=== PATIENT | female | born 1985 | race Caucasian/White ===

== ENCOUNTER 2017-04-16 09:05 | Inpatient (IN) | payer OTHER ==
[2017-04-16] VITALS (34 sets, daily range): BP systolic 101–147; BP diastolic 54–79
[~2017-04-16] VITALS: Ht 167.6 cm; Wt 116.0 kg
--- NOTE | 2017-04-16 09:02 | NUR ---
PT ARRIVED IN TRIAGE, BREATHING WELL WITH EACH CONTRACTION, STATED CONTRACTIONS STARTED AT 0700 AND POSSIBLE SROM AT 0745. HEIGHT AND WEIGHT OBTAINED, PT PROVIDED URINE FOR TESTING. ASSISTED TO BED, EFM STARTED VIA [employer]. CONTRACTIONS PALPATE MILD TO MODERATE. ASSESSMENT DONE.
[~2017-04-16 09:05] MED LIST: AMOXICILLIN/CL875 MG OR; AMOXICILLIN/PO500 MG PO; AMOXICILLIN875 MG OR; ATROVENT NASAL0.03 % NAS; AUGMENTIN875TAB OR; BENADRYL 50MG C50 MG PO; CELEXA20 M1 PO; CEPHALEXIN500 M1 OR; CEPHALEXIN500 M1 PO; CHERATUSSIN OR; CIPRO750 MG PO; CIPROFLOXACN500 MG PO; CLARITIN10 MG OR; DEPO-MEDROL80 MG/ML IM; DIFLUCAN150 MG OR; DIFLUCAN150 MG PO; DOXYCYCL HYC100 MG PO; EQ IBUPROFEN200 MG PO; FIORICE1 PO; FIORICET PO; FLEXERIL10 MG PO; FLEXERIL5 M1 PO; FLONASE 60 DOS0.05 %; FOLIC ACID1 MG PO; IBUPROFEN800 MG PO; KEFLEX500 MG OR; KETOROLAC60 MG/2 ML IJ; KURIC2 % EX; LORTAB 7.5 PO; MEDDOSEPAK PO; METRONIDAZOL500 MG PO; NAPROSYN500 MG PO; NAPROXEN500 MG PO; NO; NO HOME MEDS; PAROXETINE20 MG PO; PRE NATAL VIT; PRENATAL1 TA1 PO; PRENATAL1 TAB OR; PREVACID30 M3 PO; PROAIR HFA IN; PROCARDIA10 MG PO; ROBITUSSIN AC10 ML PO; ROCEPHIN 1 GM1 GM IM; SOLU-MEDROL125 MG; SOLU-MEDROL125 MG IM; TAM75CAP OR; TORADOL PO; TRAMADOL HCL50 MG PO; ULTRAM50 MG PO; ZITHROMAX250 MG OR; ZOFRAN ODT4 MG PO
[2017-04-16 09:17] LABS: URINE BILIRUBIN - DIPSTICK NEGATIVE (NEGATIVE); URINE BLOOD DIPSTICK LARGE (NEGATIVE); URINE CLARITY SLIGHT CLOUDY; URINE COLOR YELLOW; URINE GLUCOSE - DIPSTICK NEGATIVE (NEGATIVE); URINE KETONE NEGATIVE (NEGATIVE); URINE NITRITE - DIPSTICK NEGATIVE (Negative); URINE PROTEIN - DIPSTICK NEGATIVE (NEG-TRACE); URINE UROBILINOGEN - DIPSTICK 0.2 E.U./dL (0.2)
[2017-04-16 09:18] LABS: URINE LEUK ESTERASE SMALL (NEGATIVE)
[2017-04-16 09:21] LABS: BARBITURATES NEGATIVE (NEGATIVE); COCAINE NEGATIVE (NEGATIVE); METHADONE NEGATIVE (NEGATIVE); OXCYCODONE NEGATIVE (NEGATIVE); TETRAHYDROCANNABIONOL NEGATIVE (NEGATIVE); TRICYLIC ANTIDEPRESSANTS NEGATIVE (NEGATIVE)
[2017-04-16 09:23] LABS: URINE SQUAMOUS EPITHELIAL CELL MODERATE EPI/hpf (0-FEW)
--- NOTE | 2017-04-16 09:25 | NUR ---
SVE DONE PT IS BREATHING WELL WITH EACH CONTRACTION AND C/O FEELING PRESSURE. 5-6/90%/-1, VERTEX. WILL CALL
--- NOTE | 2017-04-16 09:30 | NUR ---
REPORT GIVEN TO DR. VIRAMONTES ABOUT PT, ORDERS RECEIVED.
--- NOTE | 2017-04-16 09:40 | NUR ---
18G IV STARTED ON PT'S LEFT AC, X 2 ATTEMPTS BY SANDER DORMAN AND Amaris GAO RN. LABS DRAWN. IVF STARTED BOLUS ORDERED. PT TOLERATED PROCEDURE WELL.
--- NOTE | 2017-04-16 10:00 | NUR ---
DR. VIRAMONTES AT BEDSIDE, SVE DONE, 5/90%/0.
--- NOTE | 2017-04-16 10:05 | NUR ---
PT AND SHARING THAT THEIR LAST CHILD HAS EPIDERMOLYSIS BULLOSA (EB), AND THAT THERE IS A 25% THAT THIS CHILD WILL HAVE IT ALSO. PARENTS REQUESTING TO BE CAREFUL WITH INFANT'S SKIN SKIN WILL SLOUGH OFF IF THERE IS PRESSURE OR RUBBING OF SKIN. NURSERY NURSE AND TEACHER PRIVATE MADE AWARE.
--- NOTE | 2017-04-16 10:09 | NUR ---
NUBAIN GIVEN DURING CONTRACTION AT THIS TIME FOR A PAIN OF 8 OUT OF 10.
[2017-04-16 10:32] LABS: HEMATOCRIT 40.3 % (37.0-47.0); HEMOGLOBIN 13.2 g/dl (12.0-16.0); IMMATURE GRANULOCYTES 0.6 % (0.0-1.0); MEAN CELL VOLUME 83.4 fL CALC (80.0-100.0); MEAN CORPUSCULAR HGB 27.3 pG CALC (26.0-32.0); MEAN CORPUSCULAR HGB CONC 32.8 g/L CALC (32.0-36.0); NEUT# 6.32 thou/uL (2.00-7.15); RED BLOOD COUNT 4.83 mill/uL (4.20-5.60)
[2017-04-16] MEDS ORDERED: ZANTAC150 M1 PO (10:37)
[2017-04-16] MEDS ORDERED: TYLENOL325 MG PO (10:38)
[2017-04-16 10:39] LABS: ALBUMIN 3.6 g/dL (3.2-5.0); ALKALINE PHOSPHATASE 134 u/l (38-126); ANION GAP 14 (6-22 (CALC)); BILIRUBIN, TOTAL 0.3 mg/dL (0.0-1.4); BUN 10 mg/dL (7-17); BUN/CREATININE RATIO 15 (12-20 (CALC)); CALCIUM 8.9 mg/dL (8.4-10.2); CARBON DIOXIDE 22 mmol/l (22-30); CHLORIDE 107 mmol/l (95-108); CREATININE 0.6 mg/dL (0.5-1.0); GFR > 60 ML/MIN (>=60 (CALC)); GFR FOR AFR.AMER. > 60 ML/MIN (>=60 (CALC)); GLUCOSE 75 mg/dL (65-105); POTASSIUM 4.1 mmol/l (3.5-5.1); SGOT/AST 18 u/l (14-36); SGPT/ALT 27 u/l (9-52); SODIUM 138 mmol/l (137-146); TOTAL PROTEIN 6.4 g/dL (6.3-8.2)
--- NOTE | 2017-04-16 10:40 | NUR ---
PT RESTING, STATES NUBAIN HELPED THE PAIN, PAIN IS DOWN TO 4 OUT OF 10.
--- NOTE | 2017-04-16 10:53 | NUR ---
PT SLEEPING AT THIS TIME, AT BEDSIDE.
--- NOTE | 2017-04-16 11:50 | NUR ---
DR. VIRAMONTES AT BEDSIDE, SVE DONE, 6/90%/0 PER MD.
--- NOTE | 2017-04-16 12:02 | NUR ---
PT UP TO BATHROOM, VOIDED 200ML DARK YELLOW URINE. PT ALSO HAD EMESIS OF CLEAR SECRETIONS. NOW SITTING AT EDGE OF BED.
--- NOTE | 2017-04-16 12:13 | NUR ---
NUBAIN GIVEN DURING CONTRACTION.
--- NOTE | 2017-04-16 12:57 | NUR ---
NOVII LINDA MONITOR CHANGED TO DIFFERENT MACHINE CONTRACTIONS ARE BEING PALPATED, BUT NOT SHOWING UP ON MONITOR.
--- NOTE | 2017-04-16 13:11 | NUR ---
NOVII LINDA MONITOR APPEARS TO BE PICKING UP CONTRACTIONS NOW.
--- NOTE | 2017-04-16 13:19 | NUR ---
PT HAD LIGHT GREEN EMESIS AT THIS TIME.
--- NOTE | 2017-04-16 13:21 | NUR ---
PT REQUESTING EPIDURAL, IV BOLUS STARTED. DR. VIRAMONTES NOTIFIED AND ON HIS WAY TO THE HOSPITAL. Bola MELENDEZ CRNA NOTIFIED WELL.
--- NOTE | 2017-04-16 13:28 | NUR ---
EXTERNAL MATERNAL DIRECTOR PRODUCT DEVELOPMENT AND PULSE OX, ALONG WITH BP, PLACED ON PT TO MONITOR VS/EKG DURING PROCEDURE.
--- NOTE | 2017-04-16 13:40 | NUR ---
Bola MELENDEZ, ASSET MANAGER AT BEDSIDE.
--- NOTE | 2017-04-16 13:55 | NUR ---
DR. VIRAMONTES AT BEDSIDE, SVE DONE, 7/90%/0.
--- NOTE | 2017-04-16 13:56 | NUR ---
Bola MELENDEZ, AUTOMATIC MAINTAINER IN ROOM AT THIS TIME.
--- NOTE | 2017-04-16 14:00 | NUR ---
PT SITTING UP AT EDGE OF BED FOR EPIDURAL PLACEMENT.
--- NOTE | 2017-04-16 14:02 | NUR ---
SKIN PREP PER CIVIL ENGINEER LAND DEVELOPMENT.
--- NOTE | 2017-04-16 14:05 | NUR ---
SKIN NUMBING PER BUSINESS INSTRUCTOR.
--- NOTE | 2017-04-16 14:09 | NUR ---
CATH IN PLACE.
--- NOTE | 2017-04-16 14:10 | NUR ---
TEST DOSE PER DIVING INSTRUCTOR, HR 58-60'S.
--- NOTE | 2017-04-16 14:12 | NUR ---
BOLUS DOSE PER DRAG OUT WORKER.
--- NOTE | 2017-04-16 14:14 | NUR ---
PT LAID DOWN AT THIS TIME, WITH RIGHT TILT.
--- NOTE | 2017-04-16 14:35 | NUR ---
PT RESTING, DENIES ANY PAIN, VISITING WITH FAMILY.
--- NOTE | 2017-04-16 14:50 | NUR ---
ATTEMPTED TO PLACE CABAN CATHETER, BUT UNABLE TO ADVANCE IN THE [place]. WILL NOTIFY
--- NOTE | 2017-04-16 14:55 | NUR ---
PT SLEEPING AT THIS TIME.
--- NOTE | 2017-04-16 15:18 | NUR ---
PT HAD ANOTHER EMESIS AT THIS TIME.
--- NOTE | 2017-04-16 15:20 | NUR ---
CABAN INSERTED USING STERILE TECHNIQUE.
--- NOTE | 2017-04-16 15:25 | NUR ---
DR. VIRAMONTES AT BEDSIDE, SVE DONE, RIM/100%/+1.
--- NOTE | 2017-04-16 15:40 | NUR ---
PT REPOSITIONED TO HIGH FOWLERS AFTER HAVING VARIABLE DECEL. WILL CONTINUE TO MONITOR.
--- NOTE | 2017-04-16 16:04 | NUR ---
DR. VIRAMONTES AT BEDSIDE, SVE DONE, COMPLETE, PREPPING FOR DELIVERY.
--- NOTE | 2017-04-16 16:10 | NUR ---
CABAN REMOVED AT THIS TIME.
--- NOTE | 2017-04-16 16:21 | NUR ---
O2 AT 15L PER NON REBREATHER MASK APPLIED TO PT FOR VARIABLE DECELS.
--- NOTE | 2017-04-16 16:25 | NUR ---
OF FEMALE INFANT. SEE DELIVERY ROOM RECORD. PITOCIN 20 UNITS IN LR STARTED A BOLUS PER MD'S ORDER.
--- NOTE | 2017-04-16 16:27 | NUR ---
PLACENTA OUT AT THIS TIME, FF@U, LIGHT LOCHIA.
--- NOTE | 2017-04-16 16:40 | NUR ---
Bola MELENDEZ, JOSELINE NOTIFIED THAT PT DELIVERED.
--- NOTE | 2017-04-16 17:00 | NUR ---
EPIDURAL REMOVED PER BOAT MOTOR MECHANIC, TIP INTACT.
--- NOTE | 2017-04-16 17:40 | NUR ---
PT ASSISTED TO BATHROOM, VOIDED SMALL AMOUNT, PERICARE DONE, PANTIES AND PADS PLACED, GOWN CHANGED. THEN ASSISTED PT TO WHEELCHAIR AND MOVED TO ROOM 203. ORIENTED TO NEW ROOM, INITIAL POST TEACHING DONE. BOTH PT AND HER VERBALIZED UNDERSTANDING.
--- NOTE | 2017-04-16 17:55 | NUR ---
MEDICATED WITH MOTRIN FOR CRAMPING PAIN.
--- NOTE | 2017-04-16 18:00 | NUR ---
DR. VIRAMONTES NOTIFIED THAT PT IS NAUSEATED AND REQUESTING SOMETHING FOR IT. ORDERS RECEIVED.
--- NOTE | 2017-04-16 18:09 | NUR ---
PT MEDICATED WITH ZOFRAN IV FOR NAUSEA AT THIS TIME.
--- NOTE | 2017-04-16 18:45 | NUR ---
REPORT FROM Yudi MAYEN RN
--- NOTE | 2017-04-16 19:10 | NUR ---
PT VISITING WITH FAMILY, IN OPEN CRIB AT BS. POC REVIEWED, UNDERSTANDING VERBLIZED
--- NOTE | 2017-04-16 22:00 | NUR ---
UP TO SHOWER. AMBULATING WITHOUT DIZZINESS OR LIGHTHEADEDNESS. IV SITE COVERED. ADVISED OF EMERGENCY CALL LIGHT IF NEEDED. VERBALIZED UNDERSTANDING. FAMILY AT BEDSIDE.
--- NOTE | 2017-04-16 22:18 | NUR ---
PT UP TO SHOWER
[2017-04-17] VITALS: BP 122/72
--- NOTE | 2017-04-17 05:39 | NUR ---
CBC DRAW X1, PT TOLERATED WELL. MEDICATED WITH MOTRIN PER ORDER. AT BS IN OPEN CRIB
[2017-04-17 06:00] LABS: HEMATOCRIT 35.1 % (37.0-47.0); HEMOGLOBIN 11.5 g/dl (12.0-16.0); IMMATURE GRANULOCYTES 0.8 % (0.0-1.0); MEAN CELL VOLUME 84.4 fL CALC (80.0-100.0); MEAN CORPUSCULAR HGB 27.6 pG CALC (26.0-32.0); MEAN CORPUSCULAR HGB CONC 32.8 g/L CALC (32.0-36.0); NEUT# 7.75 thou/uL (2.00-7.15); RED BLOOD COUNT 4.16 mill/uL (4.20-5.60); RED CELL DISTRI WIDTH 14.1 % (11.5-15.5)
--- NOTE | 2017-04-17 07:00 | NUR ---
mary jane received from gabi eldridge.
--- NOTE | 2017-04-17 07:10 | NUR ---
patient in bed asleep. respirations even and unlabored. left undisturbed.
--- NOTE | 2017-04-17 07:50 | NUR ---
lying in bed asleep. easily aroused. assessment done as charted. complains of lower abdominal cramping. motrin not yet due. will obtain new order from md. no other concerns at this time. iv site in rt ac wnl. will continue to monitor.
--- NOTE | 2017-04-17 10:01 | NUR ---
called to patient room who said that she changed her mind about having a tubal ligation. she also requested that her iv access be removed. same done per request. to be notified.
[2017-04-17 13:00] VITALS: BP 124/66
--- NOTE | 2017-04-17 18:34 | NUR ---
in room with infant. end of shift report given to rabia.
--- NOTE | 2017-04-17 19:00 | NUR ---
RECEIVED REPORT FROM PRIOR SHIFT ON PATIENT.
--- NOTE | 2017-04-17 19:12 | NUR ---
Lortab one tablet by mouth given for pain level of 4 on scale of 1 to 10.
[2017-04-17 19:20] VITALS: BP 127/49
--- NOTE | 2017-04-17 19:26 | NUR ---
ASSESSMENT DONE AND COMPLETED ON PATIENT.
--- NOTE | 2017-04-17 20:30 | NUR ---
patient resting in no distress. pain level of 0 on scale of 1 to 10.
[2017-04-17 23:00] VITALS: BP 129/72
--- NOTE | 2017-04-17 23:34 | NUR ---
pain level of 4 on scale of 1 to 10. medicated with motrin 600mg by mouth for pain.
--- NOTE | 2017-04-18 00:30 | NUR ---
Pain level of 0 on scale of 1 to 10.
--- NOTE | 2017-04-18 01:38 | NUR ---
Patient resting comfortably.
[2017-04-18 05:12] VITALS: BP 129/72
--- NOTE | 2017-04-18 05:14 | NUR ---
Vitals done. Patient denies no pain at present moment. Resting comfortably no distress noted.
--- NOTE | 2017-04-18 06:50 | NUR ---
REPORT RECEIVED FROM Marco LIU RN. PT IS SLEEPING SOUNDLY IN SEMI FOWLERS
[2017-04-18] MEDS ORDERED: IBUPROFEN600 MG PO (09:14)
[2017-04-18] MEDS ORDERED: ZOFRAN ODT4 MG PO (09:15)
[2017-04-18] MEDS ORDERED: NORCO1 TA1 PO (09:15)
--- NOTE | 2017-04-18 11:00 | NUR ---
VIDEOS COMPLETED. WRITTEN D/C TEACHING INFO IN HAND. PT ANXIOUS FOR D/C AND UNDERSTANDS THAT EMERGENCY VEHICLE DISPATCHER MUST COME FIRST AND MD PLANS TO ROUND AT NOON
--- NOTE | 2017-04-18 13:47 | NUR ---
DISCHARGED TO HOME VIA WHEELCHAIR HOLDING BABY IN [facility], ESCORTED BY Prasad VERONICA RN. D/C INSTRUCTION AND MED REC IN HAND. NO DISTRESS OR CONCERNS VOICED.
== END 2017-04-18 13:47 | disposition home or self-care (01) | DRG 775 ==
LOC: OB 09:05 → OBOP 09:05 → OB 09:30
PROC: 10E0XZZ Delivery of Products of Conception, External Approach (ICD-10-PCS; principal; 2017-04-16)
DX: O99.214 Obesity complicating childbirth (principal); Z68.41 Body mass index [BMI] 40.0-44.9, adult; E66.01 Morbid (severe) obesity due to excess calories; O99.62 Diseases of the digestive system complicating childbirth; K80.20 Calculus of gallbladder without cholecystitis without obstruction; Z3A.37 37 weeks gestation of pregnancy; Z37.0 Single live birth
CPT/HCPCS: J2795

== ENCOUNTER 2017-05-18 08:58 | Day surgery (SDC) | payer OTHER ==
[~2017-05-18 08:58] MED LIST changes: +IBUPROFEN600 MG PO; +MULTI VITAMIN W PO; +NORCO1 TA1 PO; +TYLENOL325 MG PO; +ZANTAC150 M1 PO
[2017-05-18] MEDS ORDERED: LORTAB 7.57.5 MG PO (13:53)
[2017-05-18 14:58] VITALS: BP 169/79
== END 2017-05-18 16:55 | disposition home or self-care (01) | DRG 745 ==
LOC: ORM 08:58
PROVIDERS: ATTEND Obstetrics & Gynecology
PROC: 0UL74CZ Occlusion of Bilateral Fallopian Tubes with Extraluminal Device, Percutaneous Endoscopic Approach (ICD-10-PCS; principal; 2017-05-18)
DX: Z30.2 Encounter for sterilization (principal); E66.9 Obesity, unspecified; Z68.37 Body mass index [BMI] 37.0-37.9, adult
CPT/HCPCS: J2710

== ENCOUNTER 2018-01-01 10:34 | Emergency (ER) | payer OTHER ==
[~2018-01-01] VITALS: Ht 167.6 cm; Wt 106.0 kg
[~2018-01-01 10:34] MED LIST changes: +LORTAB 7.57.5 MG PO
[2018-01-01 12:19] LABS: HEMOGLOBIN 13.2 g/dl (12.0-16.0); IMMATURE GRANULOCYTES 0.3 % (0.0-1.0); MEAN CELL VOLUME 84.7 fL CALC (80.0-100.0); MEAN CORPUSCULAR HGB 27.3 pG CALC (26.0-32.0); MEAN CORPUSCULAR HGB CONC 32.2 g/L CALC (32.0-36.0); NEUT# 6.49 thou/uL (2.00-7.15); RED BLOOD COUNT 4.84 mill/uL (4.20-5.60); RED CELL DISTRI WIDTH 14.6 % (11.5-15.5)
[2018-01-01 12:54] LABS: ALBUMIN 4.2 g/dL (3.2-5.0); ALKALINE PHOSPHATASE 64 u/l (38-126); ANION GAP 16 (6-22 (CALC)); BILIRUBIN, TOTAL 0.3 mg/dL (0.0-1.4); BUN 15 mg/dL (7-17); BUN/CREATININE RATIO 19 (12-20 (CALC)); CARBON DIOXIDE 23 mmol/l (22-30); CHLORIDE 106 mmol/l (95-108); CREATININE 0.8 mg/dL (0.5-1.0); GFR > 60 ML/MIN (>=60 (CALC)); GFR FOR AFR.AMER. > 60 ML/MIN (>=60 (CALC)); POTASSIUM 3.9 mmol/l (3.5-5.1); SGOT/AST 37 u/l (14-36); SGPT/ALT 25 u/l (9-52); SODIUM 142 mmol/l (137-146); TOTAL PROTEIN 6.7 g/dL (6.3-8.2)
[2018-01-01 13:12] LABS: URINE BILIRUBIN - DIPSTICK NEGATIVE (NEGATIVE); URINE BLOOD DIPSTICK NEGATIVE (NEGATIVE); URINE COLOR YELLOW; URINE GLUCOSE - DIPSTICK NEGATIVE (NEGATIVE); URINE KETONE NEGATIVE (NEGATIVE); URINE LEUK ESTERASE NEGATIVE (NEGATIVE); URINE NITRITE - DIPSTICK NEGATIVE (Negative); URINE PROTEIN - DIPSTICK NEGATIVE (NEG-TRACE); URINE UROBILINOGEN - DIPSTICK 0.2 E.U./dL (0.2)
[2018-01-01 13:13] LABS: URINE CLARITY CLEAR
[2018-01-01 13:24] LABS: TSH, 3RD GENERATION 0.75 uIU/mL (0.47 - 4.68)
[2018-01-01] MEDS ORDERED: TRAMADOL HYDROC50 MG PO (13:50)
[2018-01-01 14:09] VITALS: BP 109/58
== END 2018-01-01 14:05 | disposition home or self-care (01) | DRG 103 ==
LOC: ED 10:34
PROVIDERS: Emergency Medicine
DX: G43.909 Migraine, unspecified, not intractable, without status migrainosus (principal); R60.9 Edema, unspecified

== ENCOUNTER 2019-12-07 | Emergency (ER) | payer OTHER ==
[~2019-12-07] MED LIST changes: +TRAMADOL HYDROC50 MG PO
[2019-12-07] MEDS ORDERED: FIORICET PO (16:40)
[2019-12-07] MEDS ORDERED: MEDDOSEPAK PO ×2 (16:40)
[2019-12-07] MEDS ORDERED: FLEXERIL5 MG PO ×2 (16:40)
== END 2019-12-07 16:54 | disposition home or self-care (01) ==
DX: R51 Headache (principal); M26.69 Other specified disorders of temporomandibular joint; M62.838 Other muscle spasm

== ENCOUNTER 2020-06-12 23:17 | Emergency (ER) | payer OTHER ==
[~2020-06-12] VITALS: Ht 167.6 cm; Wt 109.0 kg
[~2020-06-12 23:17] MED LIST changes: +FLEXERIL5 MG PO
[2020-06-13 00:30] LABS: HEMATOCRIT 41.1 % (37.0-47.0); HEMOGLOBIN 12.9 g/dl (12.0-16.0); IMMATURE GRANULOCYTES 0.4 % (0.0-5.0); MEAN CELL VOLUME 81.9 fL CALC (80.0-100.0); MEAN CORPUSCULAR HGB 25.7 pG CALC (26.0-32.0); MEAN CORPUSCULAR HGB CONC 31.4 g/dL CAL (32.0-36.0); NEUT# 8.86 thou/uL (2.00-7.15); RED BLOOD COUNT 5.02 mill/uL (4.20-5.60)
[2020-06-13 00:46] LABS: ALBUMIN 4.6 g/dL (3.2-5.0); ALKALINE PHOSPHATASE 72 u/l (38-126); ANION GAP 12 (6-22 (CALC)); BILIRUBIN, TOTAL 0.3 mg/dL (0.0-1.4); BUN 14 mg/dL (7-17); BUN/CREATININE RATIO 21 (12-20 (CALC)); CARBON DIOXIDE 24 mmol/l (22-30); CHLORIDE 106 mmol/l (95-108); CREATININE 0.7 mg/dL (0.5-1.0); GFR > 60 ML/MIN (>=60 (CALC)); GFR FOR AFR.AMER. > 60 ML/MIN (>=60 (CALC)); POTASSIUM 3.9 mmol/l (3.5-5.1); SGOT/AST 30 u/l (14-36); SODIUM 137 mmol/l (137-146); TOTAL PROTEIN 7.5 g/dL (6.3-8.2)
[2020-06-13 01:57] VITALS: BP 129/60
== END 2020-06-13 02:28 | disposition home or self-care (01) ==
LOC: ED 23:17
PROVIDERS: Emergency Medicine
DX: J06.9 Acute upper respiratory infection, unspecified (principal); Z20.828 Contact with and (suspected) exposure to other viral communicable diseases
CPT/HCPCS: Q9967

== ENCOUNTER 2021-12-07 11:52 | Emergency (ER) | payer OTHER ==
[~2021-12-07] VITALS: Ht 167.6 cm; Wt 121.0 kg
[2021-12-07] MEDS ORDERED: LISINOPRIL2.5 MG PO (12:13)
[2021-12-07] MEDS ORDERED: KEFLEX500 MG PO (13:10)
[2021-12-07] MEDS ORDERED: FLONASE AL50 MCG/ACT (13:10)
[2021-12-07 13:34] VITALS: BP 141/78
== END 2021-12-07 13:34 | disposition home or self-care (01) ==
LOC: ED 11:52
DX: U07.1 COVID-19 (principal); J32.9 Chronic sinusitis, unspecified

== ENCOUNTER 2022-05-09 20:43 | Emergency (ER) | payer OTHER ==
[~2022-05-09] VITALS: Ht 167.6 cm; Wt 117.9 kg
[~2022-05-09 20:43] MED LIST changes: +FLONASE AL50 MCG/ACT; +KEFLEX500 MG PO; +LISINOPRIL2.5 MG PO
[2022-05-09] MEDS ORDERED: TOPIRAMATE ER50 MG PO (20:54)
[2022-05-09] MEDS ORDERED: COZAAR25 MG PO (20:54)
[2022-05-09 21:06] VITALS: BP 129/57
[2022-05-09 21:13] VITALS: BP 129/57
== END 2022-05-09 21:23 | disposition home or self-care (01) ==
LOC: ED 20:43
DX: F06.4 Anxiety disorder due to known physiological condition (principal); I10 Essential (primary) hypertension

== ENCOUNTER 2022-08-04 12:26 | Observation (INO) | payer OTHER ==
[~2022-08-04] VITALS: Ht 167.6 cm; Wt 109.0 kg
[~2022-08-04 12:26] MED LIST changes: +COZAAR25 MG PO; +TOPIRAMATE ER50 MG PO
[2022-08-04 13:25] LABS: HEMATOCRIT 39.4 % (37.0-47.0); HEMOGLOBIN 12.6 g/dl (12.0-16.0); IMMATURE GRANULOCYTES 0.7 % (0.0-5.0); MEAN CELL VOLUME 81.2 fL CALC (80.0-100.0); NEUT# 7.88 thou/uL (2.00-7.15); RED BLOOD COUNT 4.85 mill/uL (4.20-5.60); RED CELL DISTRI WIDTH 14.6 % (11.5-15.5)
[2022-08-04 13:27] LABS: ALBUMIN 4.6 g/dL (3.2-5.0); ALKALINE PHOSPHATASE 79 u/l (38-126); BUN 9 mg/dL (7-17); BUN/CREATININE RATIO 17 (12-20 (CALC)); CARBON DIOXIDE 23 mmol/l (22-30); CREATININE 0.5 mg/dL (0.5-1.0); GFR FOR AFR.AMER. > 60 ML/MIN (>=60 (CALC)); GFR OTHER RACES > 60 ML/MIN (>=60 (CALC)); SGOT/AST 25 u/l (14-36); SODIUM 137 mmol/l (137-146); TOTAL PROTEIN 7.3 g/dL (6.3-8.2)
[2022-08-04 13:28] LABS: BILIRUBIN, TOTAL 0.2 mg/dL (0.0-1.4)
[2022-08-04 13:29] LABS: ANION GAP 16 (6-22 (CALC)); CHLORIDE 102 mmol/l (95-108)
[2022-08-04 13:31] LABS: PROTHROMBIN TIME 9.5 SECONDS (9.0-12.5)
[2022-08-04 13:59] VITALS: BP 129/81
[2022-08-04 14:04] LABS: URINE BILIRUBIN - DIPSTICK NEGATIVE (NEGATIVE); URINE BLOOD DIPSTICK NEGATIVE (NEGATIVE); URINE COLOR YELLOW; URINE GLUCOSE - DIPSTICK NEGATIVE (NEGATIVE); URINE KETONE NEGATIVE (NEGATIVE); URINE LEUK ESTERASE NEGATIVE (NEGATIVE); URINE PH 6.5 (4.5-8.0); URINE PROTEIN - DIPSTICK NEGATIVE (NEG-TRACE); URINE SPECIFIC GRAVITY <=1.005; URINE UROBILINOGEN - DIPSTICK 0.2 E.U./dL (0.2)
[2022-08-04 14:11] LABS: URINE NITRITE - DIPSTICK NEGATIVE (Negative)
[2022-08-04 15:01] VITALS: BP 111/60
[2022-08-04 18:17] VITALS: BP 131/75
[2022-08-04 19:24] VITALS: BP 119/70
[2022-08-04 23:52] VITALS: BP 103/56
[2022-08-05 04:00] VITALS: BP 110/59
[2022-08-05 04:40] VITALS: BP 110/59
[2022-08-05 06:07] LABS: HEMATOCRIT 36.2 % (37.0-47.0); HEMOGLOBIN 11.5 g/dl (12.0-16.0); MEAN CELL VOLUME 82.3 fL CALC (80.0-100.0); MEAN CORPUSCULAR HGB 26.1 pG CALC (26.0-32.0); MEAN CORPUSCULAR HGB CONC 31.8 g/dL CAL (32.0-36.0); RED BLOOD COUNT 4.4 mill/uL (4.20-5.60); RED CELL DISTRI WIDTH 14.8 % (11.5-15.5)
[2022-08-05 06:48] LABS: ANION GAP 14 (6-22 (CALC)); BUN 10 mg/dL (7-17); BUN/CREATININE RATIO 16 (12-20 (CALC)); CALCULATED LDLCHOLESTEROL 87 mg/dL (62-129 (CALC)); CARBON DIOXIDE 21 mmol/l (22-30); CHLORIDE 107 mmol/l (95-108); CREATININE 0.6 mg/dL (0.5-1.0); GFR FOR AFR.AMER. > 60 ML/MIN (>=60 (CALC)); GFR OTHER RACES > 60 ML/MIN (>=60 (CALC)); HDL CHOLESTEROL 33 mg/dL (>=40); MAGNESIUM 2.2 mg/dL (1.6-2.3); POTASSIUM 4.3 mmol/l (3.5-5.1); SODIUM 137 mmol/l (137-146); TOTAL CHOLESTEROL 154 mg/dl (0-199); TOTAL TRIGLYCERIDES 173 mg/dl (30-149); VLDL CHOLESTROL 35 mg/dl (1-41 (CALC))
[2022-08-05 11:50] VITALS: BP 121/69
[2022-08-05] MEDS ORDERED: VENLAFAXINE75 M1 PO (12:58)
[2022-08-05 18:53] VITALS: BP 122/50
[2022-08-05 19:00] VITALS: BP 122/50
[2022-08-05 23:27] VITALS: BP 121/60
[2022-08-06] VITALS: BP 121/60
[2022-08-06 03:35] VITALS: BP 114/55
[2022-08-06 04:00] VITALS: BP 114/55
[2022-08-06 07:47] VITALS: BP 109/63
[2022-08-06] MEDS ORDERED: MECLIZINE12.5 M1 PO (14:21)
[2022-08-06 15:14] VITALS: BP 114/62
== END 2022-08-06 16:14 | disposition home or self-care (01) ==
LOC: ED 12:26 → ED-I 13:52 → ED 15:02 → MS2 15:02
PROVIDERS: Nurse Practitioner; ADMIT Internal Medicine; ATTEND Internal Medicine
DX: R42 Dizziness and giddiness (principal); I10 Essential (primary) hypertension; E66.9 Obesity, unspecified; R63.5 Abnormal weight gain; Z68.38 Body mass index [BMI] 38.0-38.9, adult; Z20.822 Contact with and (suspected) exposure to COVID-19
CPT/HCPCS: G0378; Q9967

== ENCOUNTER 2023-06-30 05:26 | Emergency (ER) | payer OTHER ==
[2023-06-30] VITALS (17 sets, daily range): BP systolic 98–136; BP diastolic 60–87
[~2023-06-30] VITALS: Ht 167.6 cm; Wt 113.6 kg
[~2023-06-30 05:26] MED LIST changes: +MECLIZINE12.5 M1 PO; +VENLAFAXINE75 M1 PO
[2023-06-30 06:19] LABS: BASO% 0.2 % (0-3); EOS% 1.5 % (0-8); HEMATOCRIT 42.7 % (37.0-47.0); IMMATURE GRANULOCYTES 0.4 % (0.0-5.0); LYMPH% 25.1 % (15-41); MEAN CELL VOLUME 82.8 fL CALC (80.0-100.0); MEAN CORPUSCULAR HGB 25.2 pG CALC (26.0-32.0); MEAN CORPUSCULAR HGB CONC 30.4 g/dL CAL (32.0-36.0); MONO% 5.5 % (2-13); NEUT# 7.19 thou/uL (2.00-7.15); NEUT% 67.3 % (42-76); RED BLOOD COUNT 5.16 mill/uL (4.20-5.60); RED CELL DISTRI WIDTH 14.9 % (11.5-15.5)
[2023-06-30 06:22] LABS: URINE BILIRUBIN - DIPSTICK Negative (NEGATIVE); URINE BLOOD DIPSTICK Negative (NEGATIVE); URINE COLOR Yellow; URINE GLUCOSE - DIPSTICK Negative (NEGATIVE); URINE KETONE Negative (NEGATIVE); URINE LEUK ESTERASE Trace (NEGATIVE); URINE NITRITE - DIPSTICK Negative (Negative); URINE PROTEIN - DIPSTICK Negative (NEG-TRACE); URINE SPECIFIC GRAVITY 1.025; URINE UROBILINOGEN - DIPSTICK 0.2 E.U./dL (0.2)
[2023-06-30 06:28] LABS: ALBUMIN 4.4 g/dL (3.2-5.0); ALKALINE PHOSPHATASE 79 u/l (38-126); ANION GAP 15 (6-22 (CALC)); BUN 9 mg/dL (7-17); BUN/CREATININE RATIO 15 (12-20 (CALC)); CARBON DIOXIDE 24 mmol/l (22-30); CHLORIDE 103 mmol/l (95-108); CREATININE 0.6 mg/dL (0.5-1.0); GFR FOR AFR.AMER. > 60 ML/MIN (>=60 (CALC)); GFR OTHER RACES > 60 ML/MIN (>=60 (CALC)); LIPASE 136 u/l (23-300); POTASSIUM 4.1 mmol/l (3.5-5.1); SGOT/AST 37 u/l (14-36); SODIUM 137 mmol/l (137-146); TOTAL PROTEIN 7.6 g/dL (6.3-8.2)
[2023-06-30 06:29] LABS: BILIRUBIN, TOTAL 0.6 mg/dL (0.02-1.3)
== END 2023-06-30 11:02 | disposition home or self-care (01) ==
LOC: ED 05:26
PROVIDERS: Family Medicine
DX: R10.11 Right upper quadrant pain (principal); R10.12 Left upper quadrant pain; I10 Essential (primary) hypertension; Z20.822 Contact with and (suspected) exposure to COVID-19
CPT/HCPCS: Q9967